=== PATIENT | male | born 1965 | race Caucasian/White ===

== ENCOUNTER → 2020-05-12 11:28 | Outpatient (BNVA) | payer OTHER, SELFPAY | PROVIDERS: PCP Internal Medicine; Visit Provider Nurse Practitioner Family | DX: R07.89 Other chest pain (principal); I34.0 Nonrheumatic mitral (valve) insufficiency; E78.5 Hyperlipidemia, unspecified | CPT/HCPCS: 93005; 99212 ==

== ENCOUNTER → 2020-05-30 10:47 | Outpatient (REF) | payer OTHER, SELFPAY ==
--- NOTE | 2020-05-30 10:52 | CA_ITS ---
Acquisition Time: 2020-05-30 11:10:47 Total Exercise Time: 00:06:57 Test Indications: cp Medications: see chart Protocol: RAJI Max HR: 171 BPM 101% of Pred: 168 BPM Max BP: 160/084 mmHG Max Work Load: 8.4 METS Exercise stress ECHO using Raji protocol. Total of 6 min 57 sec. METS 8.4 , and MHR up to 171 with maximum age predicted heart rate 101%. Pt tolerated well, denies any anginal sx. EKG with multiple PVC's at peak exercise run of 6. Denies any sx, no ischemic changes. ECHO images taken at rest and at peak exercise. Definity contrast used. Normotensive response to exercise. Test reviewed with Dr. Fernandez. Referred By: Aleyda Marti Overread By: Riki Martínez
== END ==
LOC: HO.CARD 10:47
PROVIDERS: Visit Provider Nurse Practitioner Family
DX: R07.9 Chest pain, unspecified (principal)
CPT/HCPCS: 93350; Q9957

== ENCOUNTER → 2020-06-07 09:50 | Outpatient (BNVA) | payer OTHER, SELFPAY | PROVIDERS: PCP Internal Medicine; Visit Provider Nurse Practitioner Family | DX: I34.0 Nonrheumatic mitral (valve) insufficiency (principal); E78.5 Hyperlipidemia, unspecified; R07.9 Chest pain, unspecified | CPT/HCPCS: 99212 ==

== ENCOUNTER 2020-07-04 04:48 | Emergency (ER) | payer OTHER, SELFPAY ==
--- NOTE | 2020-07-04 | XR_ITS ---
EXAMINATION: XR CHEST CLINICAL INFORMATION: Chest wall pain COMPARISON: None TECHNIQUE: 2 views of the chest were obtained. FINDINGS: The lungs are well expanded. Patchy left basilar airspace opacity. No pleural effusion or pneumothorax. No edema. The cardiomediastinal silhouette is within normal limits. No acute osseous abnormality. XR/XR chest 2V IMPRESSION: Patchy opacity at the left lung base could represent atelectasis or pneumonia.
[2020-07-04 05:52] VITALS: BP 137/90; PULSE 65; RESP 16; TEMP 36.6; O2SAT 97; BMI 27.4
--- NOTE | 2020-07-04 06:21 | ECG_ITS ---
Test Reason : CP Blood Pressure : / mmHG Vent. Rate : 055 BPM Atrial Rate : 055 BPM P-R Int : 180 ms QRS Dur : 086 ms QT Int : 410 ms P-R-T Axes : 041 040 022 degrees QTc Int : 392 ms Sinus bradycardia Otherwise normal ECG No previous ECGs available Referred By: Nestor Trimble Electronically Signed By:MELISSA KEY MD
--- NOTE | 2020-07-04 06:22 | ED.GENADULT ---
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 Patient states that he woke up with the pain 2 days prior. He states that the pain is a sharp pain located in his left lateral chest which is worse with breathing. He did not have any injuries. He denied shortness of breath or dyspnea on exertion. He has not gone on a long trips. He states that he does have pain in both of his thighs and numbness in both his thighs that he has had for approximately 3 months. He has not noticed any swelling of his legs. He denied fever, chills, nausea, vomiting, diaphoresis, pain radiating to his neck, jaw, arms or back. He states the pain is currently 7/10. He did take some baclofen and ibuprofen yesterday with no relief his symptoms. Related Data Home Medications Medication Instructions Recorded Confirmed albuterol sulfate 90 mcg/actuation INHALATION 05/11/20 06/07/20 aerosol inhaler amoxicillin 875 mg-potassium 1 tab PO BID 05/11/20 06/07/20 clavulanate 125 mg tablet betamethasone dipropionate 0.05 % 1 applic TOPICAL BID 05/11/20 06/07/20 topical ointment Previous Rx's Medication Instructions Recorded cyclobenzaprine 10 mg tablet 10 mg PO TID PRN #14 tab 05/11/20 naproxen 500 mg tablet 500 mg PO BID PRN #60 tab 05/11/20 azithromycin [Zithromax Z-Yunior] See Rx Instructions .ROUTE 07/04/20 .COMPLEX #6 tab Allergies Allergy/AdvReac Type Severity Reaction Status Date / Time No Known Allergies Allergy Verified 06/09/20 06:28 [No Known Allergies*] Review of Systems Review of Systems: Yes all other systems are reviewed and are negative Neurologic: Reports Abnormal speech present PMFSH Past Medical History Source: unable to obtain Medical History HLD (hyperlipidemia) Mitral regurgitation Surgical History H/O colonoscopy Family History Family History Father CVD (cardiovascular disease) Diabetes Hypertension Stroke Mother No problems noted. Daughter Healthy adult Son No problems noted. Brother No problems noted. Sister No problems noted. Social History Social History Smoking Status: Former smoker Advance Directives: No Physical Exam Vital Signs: Vital Signs: Last Vital Signs Temp 97.9 F 07/04/20 05:52 Pulse 65 07/04/20 05:52 Resp 16 07/04/20 05:52 BP 137/90 H 07/04/20 05:52 Pulse Ox 97 07/04/20 05:52 Body Mass Index 27.4 Const: General: cooperative and healthy appearing Orientation/consciousness: oriented to person and oriented to place Limitations: no limitations HENMT: Head: Yes normal to inspection, Yes normocephalic and Yes atraumatic Ears: external ears normal General nose exam: Normal external nose present Face and sinus: Yes normal facial exam Mouth: Normal oral and palatal mucosa present Throat: Yes posterior oropharynx normal Eyes: Periorbital: periorbital findings normal Eyelids: Yes eyelids normal Conjunctivae: conjunctivae normal Sclerae: sclerae normal Corneas: corneas normal Pupils: Equal, round and reactive pupils present Direct Ophthalmoscopy: normal light reflex Neck: Neck: Yes full ROM, Yes no lymphadenopathy, Yes no meningeal signs, Yes trachea midline and Yes supple Chest: Chest palpation & inspection: normal inspection of the chest and tenderness other (Left lateral chest, moderate) Resp: Effort & Inspection: normal respiratory effort and able to speak in complete sentences Auscultation: clear to auscultation bilaterally Cardio: Rate: regular rate Rhythm: regular rhythm Heart sounds: S1 normal heart sound present, S2 normal heart sound present and no murmurs GI: Inspection: Yes normal to inspection Palpation (GI): Soft to palpation, nontender, no guarding, not rigid and No hepatosplenomegaly present : General: Yes no CVA tenderness Back/Spine/Pelvis: Back: no CVA tenderness Cervical Spine: normal cervical lordosis Thoracic/Lumbar Spine: thoracic and lumbar spine normal to inspection Skin: Lesions: no lesions Rashes: no rashes Wounds: no wounds Neuro: General: oriented to person, oriented to place and no meningeal signs Cranial nerves: Yes Equal, round and reactive pupils present Cognition (Neuro): normal cognition Speech: Abnormal speech present Motor exam (neuro): 5/5 motor strength present throughout Extrem: General: Yes normal to inspection and Yes full ROM Psych: Appearance: well kempt Mental Status: mental status grossly normal Speech and movement: Normal speech and movement present Affect: normal affect Attitude: cooperative Thought process: Normal thought process present Thought content: Normal thought content present Course Course Course Narrative: 54-year-old male who presents emergency department present for evaluation left-sided pleuritic chest pain x2 days. Physical examination did reveal left-sided tenderness. The patient's laboratory evaluation revealed a nondetectable troponin and a non elevated D-dimer. The patient's 12 EKG was unremarkable. The patient's chest x-ray is concerning for left-sided infiltrate versus atelectasis. The patient states that he was tested yesterday for COVID-19 does not have a result back at. Given the x-ray finding, I will treat the patient for possible pneumonia with Zithromax Z-Yunior. He is advised to take ibuprofen and Tylenol 1st pain. The patient did get some relief of his pain with IV Toradol here in the emergency department. Medical Decision Making Lab Data Result diagrams: 07/04/20 06:44 07/04/20 06:44 Labs: Lab Results 07/04/20 07/04/20 07/04/20 Range/Units 06:44 06:44 06:44 WBC 8.1 (4.8-10.8) X10*3/uL RBC 4.59 L (4.60-5.80) X10*6/uL Hgb 14.6 (14.0-18.0) g/dl Hct 43.6 (42-52) % MCV 95.0 (80-98) fL MCH 31.8 (27.0-33.0) pg MCHC 33.5 (31.0-36.0) g/dl RDW 12.0 (11.0-16.0) % Plt Count 213 (160-400) X10*3/uL MPV 8.4 L (9.4-12.4) fL Immature Gran % (Auto) 0.1 (0.0-0.4) % Neut % (Auto) 76.5 H (45-73) % Lymph % (Auto) 14.4 L (20-40) % [place] % (Auto) 7.3 (2-11) % Eos % (Auto) 1.5 (0-4) % Baso % (Auto) 0.2 (0-2) % Lymph # (Auto) 1.2 (1.2-4.9) X10*3/uL [place] # (Auto) 0.6 (0.1-1.2) X10*3/uL Eos # (Auto) 0.1 (0.0-0.4) X10*3/uL Baso # (Auto) 0.0 (0.0-0.2) X10*3/uL Abs Immat Gran (auto) 0.01 (0.00-0.03) X10*3/uL Absolute Neuts (auto) 6.2 (2.0-8.3) X10*3/uL Absolute Nucleated RBC 0.000 (0.0-0.012) X10*3/uL Nucleated RBC % (auto) 0.0 (0.0-0.2) /100WBC D-Dimer < 200 NG/ML Troponin I High Sens < 3.5 (<3.5-35.0) ng/L ECG Data Attestation: I personally reviewed and interpreted this ECG as follows: Interpretation: 0743: Sinus bradycardia with a rate of 55, normal [place], QRS and QTC intervals, no ST segment elevation or depression, no old EKG for comparison, this is a normal EKG Discharge Plan Discharge Clinical Impression: Chest pain, pleuritic Pneumonia Qualifiers: Pneumonia type: due to unspecified organism Laterality: left Lung location: lower lobe of lung Qualified Code(s): J18.9 - Pneumonia, unspecified organism Patient Disposition: Home, Self-Care Instructions: Pneumonia (ED) Additional Instructions: Your blood work was unremarkable. Your EKG was normal. Your chest x-ray revealed a very subtle left-sided pneumonia. Take the antibiotic Zithromax Z-Yunior as prescribed. Take ibuprofen 200 mg pills, 3 pills every 6 hours as needed for pain. Take Tylenol (acetaminophen) 500 mg pills, 2 pills every 4 to 6 hours as needed for pain. Follow-up with your doctor in 2 days. Please return to the emergency department if your symptoms get worse or if you develop any symptoms that are concerning to you. Prescriptions: New azithromycin [Zithromax Z-Yunior] 250 mg tablet See Rx Instructions .ROUTE .COMPLEX Qty: 6 RF: 0 No Action amoxicillin-pot clavulanate 875-125 mg tablet 1 tab PO BID RF: 0 betamethasone dipropionate 0.05 % ointment 1 applic topical BID RF: 0 albuterol sulfate 90 mcg/actuation HFA aerosol inhaler inhalation RF: 0 cyclobenzaprine 10 mg tablet 10 mg PO TID PRN (Reason: muscle spasm) Qty: 14 RF: 0 naproxen 500 mg tablet 500 mg PO BID PRN (Reason: pain) Qty: 60 RF: 0
[2020-07-04 06:54] LABS: Basophils Percent Auto 0.2 % (0-2); Eosinophils Absolute Auto 0.1 X10*3/uL (0.0-0.4); Eosinophils Percent Auto 1.5 % (0-4); Hematocrit 43.6 % (42-52); Hemoglobin 14.6 g/dl (14.0-18.0); Imm Gran Abs Auto 0.01 X10*3/uL (0.00-0.03); Imm Gran Pct Auto 0.1 % (0.0-0.4); Lymphocytes Absolute Auto 1.2 X10*3/uL (1.2-4.9); Lymphocytes Percent Auto 14.4 % (20-40); MANUAL DIFF FLAG NO; Mean Corpuscular HGB Conc 33.5 g/dl (31.0-36.0); Mean Corpuscular Hemoglobin 31.8 pg (27.0-33.0); Mean Platelet Volume 8.4 fL (9.4-12.4); Monocytes Absolute Auto 0.6 X10*3/uL (0.1-1.2); Monocytes Percent Auto 7.3 % (2-11); Neutrophils Absolute Auto 6.2 X10*3/uL (2.0-8.3); Neutrophils Percent Auto 76.5 % (45-73); Platelet Count 213 X10*3/uL (160-400); Red Blood Count 4.59 X10*6/uL (4.60-5.80); White Blood Count 8.1 X10*3/uL (4.8-10.8)
[2020-07-04] MEDS: Ketorolac Tromethamine 30 MG/ML VIAL IVPUSH (06:54)
[2020-07-04 07:23] LABS: D Dimer < 200 NG/ML
[2020-07-04 07:25] LABS: Troponin-I High Sensitivity < 3.5 ng/L (<3.5-35.0)
== END 2020-07-04 10:15 | disposition home or self-care (01) ==
PROVIDERS: Emergency Provider Emergency Medicine Emergency Medical Services; PCP Internal Medicine
DX: R07.89 Other chest pain (principal); J18.9 Pneumonia, unspecified organism
CPT/HCPCS: 36415; 71046; 80053; 84484; 85025; 85379; 93005; 96374; 99283; 99284; J1885

== ENCOUNTER → 2020-08-18 13:01 | Outpatient (BNVA) | payer OTHER, SELFPAY | PROVIDERS: PCP Internal Medicine; Visit Provider Urology | DX: N48.1 Balanitis (principal) | CPT/HCPCS: 99202 ==

== ENCOUNTER 2020-08-27 09:07 | Outpatient (REF) | payer OTHER, SELFPAY ==
[2020-08-27 09:59] LABS: MANUAL DIFF FLAG NO
[2020-08-27 10:24] LABS: Basophils Percent Auto 0.3 % (0-2); Eosinophils Absolute Auto 0.1 X10*3/uL (0.0-0.4); Hemoglobin 14.1 g/dl (14.0-18.0); Imm Gran Abs Auto 0.02 X10*3/uL (0.00-0.03); Imm Gran Pct Auto 0.3 % (0.0-0.4); Lymphocytes Absolute Auto 1.5 X10*3/uL (1.2-4.9); Lymphocytes Percent Auto 21.3 % (20-40); Mean Corpuscular HGB Conc 33.6 g/dl (31.0-36.0); Mean Corpuscular Hemoglobin 31.5 pg (27.0-33.0); Mean Corpuscular Volume 93.8 fL (80-98); Mean Platelet Volume 8.3 fL (9.4-12.4); Monocytes Absolute Auto 0.6 X10*3/uL (0.1-1.2); Monocytes Percent Auto 8.3 % (2-11); Neutrophils Absolute Auto 4.6 X10*3/uL (2.0-8.3); Neutrophils Percent Auto 67.8 % (45-73); Platelet Count 258 X10*3/uL (160-400); Red Blood Count 4.48 X10*6/uL (4.60-5.80); Red Cell Distribution Width 12.1 % (11.0-16.0); White Blood Count 6.8 X10*3/uL (4.8-10.8)
[2020-08-27 10:59] LABS: Alanine Aminotransferase 17 U/L (0-40); Albumin Level 4.3 g/dL (3.5-5.0); Alkaline Phosphatase 93 U/L (39-117); Anion Gap 13 (12-20); Aspartate Amino Transferase 20 U/L (5-37); Bilirubin Total 0.4 mg/dL (0.0-1.0); Blood Urea Nitrogen 12 mg/dL (9-16); Calcium 8.8 mg/dL (8.4-10.2); Carbon Dioxide 27 mmol/L (22-29); Chloride 105 mmol/L (96-108); Cholesterol 212 mg/dL; Estimated Glomerular Filt Rate > 60; Glucose Fasting 94 mg/dL (60-99); HDL Cholesterol 40 mg/dL; LDL Cholesterol Calculated 142 mg/dl; Potassium 4.8 mmol/L (3.3-5.1); Sodium 140 mmol/L (135-145); Total Protein 7.3 g/dL (6.5-8.0); Triglycerides 154 mg/dL
[2020-08-27 11:04] LABS: Prostate Specific Antigen 2.74 ng/mL (<0.05-4.0)
== END 2020-08-27 09:08 | disposition home or self-care (01) ==
LOC: HO.XRAY 09:07
PROVIDERS: Urology; PCP Nurse Practitioner Family; Visit Provider Internal Medicine
DX: Z12.5 Encounter for screening for malignant neoplasm of prostate (principal); J18.9 Pneumonia, unspecified organism; N13.8 Other obstructive and reflux uropathy; N40.1 Benign prostatic hyperplasia with lower urinary tract symptoms; E78.5 Hyperlipidemia, unspecified
CPT/HCPCS: 36415; 80053; 80061; 84153; 85025

== ENCOUNTER 2020-09-08 13:38 | Outpatient (REF) | payer OTHER, SELFPAY ==
--- NOTE | ~2020-09-08 | XR_ITS ---
EXAMINATION: LUMBAR SPINE AND BILATERAL KNEE. CLINICAL INFORMATION: Back muscle spasm. COMPARISON: None TECHNIQUE: Lumbar spine 3 views. Each knee 4 views. FINDINGS: LUMBAR SPINE: There is normal lumbar lordosis. The vertebral heights and alignment are normal. There is loss of L5-S1 disc height. Rest of the disc heights are normal. No visible acute fracture, dislocation or lytic process are seen. The soft tissues are normal. LEFT KNEE: The tricompartment joint space is maintained normally. There is no visible acute fracture, dislocation or lytic process seen. There are no loose bodies or bony erosive changes. There are small anterior suprapatellar enthesophyte. No abnormal joint effusion. RIGHT KNEE: The tricompartmental joint space is maintained normally. No loose bodies, bony erosive changes, no fractures or abnormal joint effusions are seen. There is an anterior suprapatellar enthesophyte. XR/XR knee LT 3V IMPRESSION: Bilateral anterior superior patellar enthesophytes. Otherwise bilateral knees are unremarkable.
--- NOTE | ~2020-09-08 | XR_ITS ---
EXAMINATION: XR CHEST CLINICAL INFORMATION: J18.9 - Pneumonia, unspecified organism COMPARISON: Chest radiographs 07/04/2020 TECHNIQUE: PA and lateral views of the chest are obtained. FINDINGS: There is interval resolution patchy airspace opacity left base since prior exam 07/04/2020. There is no airspace consolidation or groundglass opacity. The costophrenic sulci are clear and there is no effusion. A probable calcified granuloma is again suggested overlying the right anterior medial chest best seen on lateral view, approximately 0.6 cm and residing just below and right of the roldan on frontal view. The current exam has a curvilinear nonanatomic faint opacity overlying the left lateral base likely related to artifact overlying the lower anterior dermis as suggested on the lateral view. The heart is normal in size. The hilar and mediastinal contours and bony structures are stable. XR/XR chest 2V IMPRESSION: 1. Left basilar airspace opacity resolved since prior exam 07/04/2020. 2. Probable calcified granuloma 0.6 cm right anterior medial chest. This may be further characterized with noncontrast CT chest.
--- NOTE | ~2020-09-08 | XR_ITS ---
EXAMINATION: LUMBAR SPINE AND BILATERAL KNEE. CLINICAL INFORMATION: Back muscle spasm. COMPARISON: None TECHNIQUE: Lumbar spine 3 views. Each knee 4 views. FINDINGS: LUMBAR SPINE: There is normal lumbar lordosis. The vertebral heights and alignment are normal. There is loss of L5-S1 disc height. Rest of the disc heights are normal. No visible acute fracture, dislocation or lytic process are seen. The soft tissues are normal. LEFT KNEE: The tricompartment joint space is maintained normally. There is no visible acute fracture, dislocation or lytic process seen. There are no loose bodies or bony erosive changes. There are small anterior suprapatellar enthesophyte. No abnormal joint effusion. RIGHT KNEE: The tricompartmental joint space is maintained normally. No loose bodies, bony erosive changes, no fractures or abnormal joint effusions are seen. There is an anterior suprapatellar enthesophyte. XR/XR knee RT 3V IMPRESSION: Bilateral anterior superior patellar enthesophytes. Otherwise bilateral knees are unremarkable.
--- NOTE | ~2020-09-08 | XR_ITS ---
EXAMINATION: LUMBAR SPINE AND BILATERAL KNEE. CLINICAL INFORMATION: Back muscle spasm. COMPARISON: None TECHNIQUE: Lumbar spine 3 views. Each knee 4 views. FINDINGS: LUMBAR SPINE: There is normal lumbar lordosis. The vertebral heights and alignment are normal. There is loss of L5-S1 disc height. Rest of the disc heights are normal. No visible acute fracture, dislocation or lytic process are seen. The soft tissues are normal. LEFT KNEE: The tricompartment joint space is maintained normally. There is no visible acute fracture, dislocation or lytic process seen. There are no loose bodies or bony erosive changes. There are small anterior suprapatellar enthesophyte. No abnormal joint effusion. RIGHT KNEE: The tricompartmental joint space is maintained normally. No loose bodies, bony erosive changes, no fractures or abnormal joint effusions are seen. There is an anterior suprapatellar enthesophyte. XR/XR lumbar spine 2-3V IMPRESSION: Bilateral anterior superior patellar enthesophytes. Otherwise bilateral knees are unremarkable.
== END 2020-09-08 13:39 | disposition home or self-care (01) ==
LOC: HO.XRAY 13:38
PROVIDERS: PCP Internal Medicine; Visit Provider Internal Medicine
DX: M25.562 Pain in left knee (principal); M25.561 Pain in right knee; M62.830 Muscle spasm of back; J18.9 Pneumonia, unspecified organism
CPT/HCPCS: 71046; 72100; 73562

== ENCOUNTER 2020-09-14 07:33 | Outpatient (REF) | payer OTHER, SELFPAY | END 2020-09-14 07:34 | disposition home or self-care (01) | LOC: HO.LAB 07:33 | PROVIDERS: Visit Provider Internal Medicine | DX: Z20.822 Contact with and (suspected) exposure to COVID-19 (principal) | CPT/HCPCS: 36415; C9803; U0003; U0005 ==

== ENCOUNTER → 2021-04-28 08:23 | Outpatient (BNVA) | payer OTHER, SELFPAY | PROVIDERS: PCP Internal Medicine; Visit Provider Urology ==

== ENCOUNTER → 2022-01-25 08:23 | Outpatient (BNVA) | payer OTHER, SELFPAY | PROVIDERS: PCP Family Medicine; Visit Provider Urology | DX: N48.1 Balanitis (principal) | CPT/HCPCS: 99212 ==